=== PATIENT | male | born 2000 | race Caucasian/White ===

== ENCOUNTER 2018-07-12 23:45 | Emergency (ER) | payer SELFPAY ==
[~2018-07-12] VITALS: Ht 175.3 cm; Wt 65.8 kg
--- NOTE | 2018-07-13 00:10 | PHYS DOC ---
Past Medical History Past Medical History: No Pertinent History Past Surgical History: No Surgical History Alcohol Use: None Drug Use: None Adult General Chief Complaint Chief Complaint: ABDOMINAL PAIN HPI HPI Patient is a 18 year old man who presents with diarrhea and LLQ pain Patient has had abdominal pain over the last 3 days. Patient has a history of appendectomy a year ago. Since then, he's well until 3 days ago when he had onset of intermittent lower abdominal pain which became constant since last night. He's had progressive diarrhea over the last 2 days, 3 episodes per day watery brown. He denies any fevers, nausea or vomiting. Denies urgency, no hematuria. No prior history of kidney stones. He smoke marijuana frequently. Review of Systems Review of Systems Constitutional: Denies fever or chills Eyes: Denies change in visual acuity, redness, or eye pain HENT: Denies nasal congestion or sore throat Respiratory: Denies cough or shortness of breath Cardiovascular: Denies chest pain or palpitations GI: with LLQ abdominal pain, nausea, no vomiting, no bloody stools, with watery diarrhea : Denies dysuria or hematuria Musculoskeletal: Denies back pain or joint pain Integument: Denies rash or skin lesions Neurologic: Denies headache, focal weakness or sensory changes Endocrine: Denies polyuria or polydipsia All other systems were reviewed and found to be within normal limits, except as documented in this note. Current Medications Current Medications Current Medications Medications (Trade) Dose Ordered Sig/Marely Start Time Stop Time Status Last Admin Dose Admin Ondansetron HCl (Zofran) 4 mg 1X ONCE 07/13/18 00:30 07/13/18 00:31 DC 07/13/18 00:56 4 MG Potassium Chloride (KCl Oral Soln) 40 meq 1X ONCE 07/13/18 01:15 07/13/18 01:16 DC 07/13/18 01:29 40 MEQ Sodium Chloride 1,000 ml @ 1,000 mls/hr 1X ONCE 07/13/18 00:15 07/13/18 01:14 DC 07/13/18 00:55 1,000 MLS/HR Allergies Allergies Allergies Coded Allergies Type Severity Reaction Last Updated Verified No Known Drug Allergies 03/08/16 No Physical Exam Physical Exam Constitutional: Well developed, well nourished, no acute distress, non-toxic appearance. HENT: Normocephalic, atraumatic, bilateral external ears normal, oropharynx moist, no oral exudates, nose normal. Eyes: PERRLA, EOMI, conjunctiva normal, no discharge. Neck: Normal range of motion, no tenderness, supple, no stridor. Cardiovascular:Heart rate regular rhythm, no murmur Lungs & Thorax: Bilateral breath sounds clear to auscultation Abdomen: Bowel sounds normal, soft, with LLQ tenderness, no masses, no pulsatile masses. Skin: Warm, dry, no erythema, no rash. Back: No tenderness, no CVA tenderness. Extremities: No tenderness, no cyanosis, no clubbing, ROM intact, no edema. Neurologic: Alert and oriented X 3, normal motor function, normal sensory function, no focal deficits noted. Psychologic: Affect normal, judgement normal, mood normal. Current Patient Data Vital Signs Vital Signs Date Time Temp Pulse Resp B/P (MAP) Pulse Ox O2 Delivery O2 Flow Rate FiO2 07/13/18 01:30 57 12 130/70 (90) 100 Room Air 07/13/18 00:13 99.3 99.3 Lab Values Laboratory Tests Test 07/13/18 00:06 07/13/18 00:47 White Blood Count 6.6 x10^3/uL (4.0-11.0) Red Blood Count 5.42 x10^6/uL (4.30-5.70) Hemoglobin 17.0 g/dL (13.0-17.5) Hematocrit 48.4 % (39.0-53.0) Mean Corpuscular Volume 89 fL (79-100) Mean Corpuscular Hemoglobin 31 pg (25-35) Mean Corpuscular Hemoglobin Concent 35 g/dL (31-37) Red Cell Distribution Width 13.4 % (11.5-14.5) Platelet Count 343 x10^3/uL (140-400) Neutrophils (%) (Auto) 57 % (31-73) Lymphocytes (%) (Auto) 30 % (24-48) Monocytes (%) (Auto) 9 % (0-9) Eosinophils (%) (Auto) 4 % (0-3) H Basophils (%) (Auto) 1 % (0-3) Neutrophils # (Auto) 3.8 x10^3uL (1.8-7.7) Lymphocytes # (Auto) 2.0 x10^3/uL (1.0-4.8) Monocytes # (Auto) 0.6 x10^3/uL (0.0-1.1) Eosinophils # (Auto) 0.2 x10^3/uL (0.0-0.7) Basophils # (Auto) 0.0 x10^3/uL (0.0-0.2) Sodium Level 143 mmol/L (136-145) Potassium Level 3.3 mmol/L (3.5-5.1) L Chloride Level 103 mmol/L (98-107) Carbon Dioxide Level 29 mmol/L (21-32) Anion Gap 11 (6-14) Blood Urea Nitrogen 11 mg/dL (8-26) Creatinine 1.2 mg/dL (0.7-1.3) Estimated GFR (Cockcroft-Gault) 77.2 BUN/Creatinine Ratio 9 (6-20) Glucose Level 92 mg/dL (70-99) Calcium Level 9.7 mg/dL (8.5-10.1) Total Bilirubin 1.3 mg/dL (0.2-1.0) H Aspartate Amino Transferase (AST) 20 U/L (15-37) Alanine Aminotransferase (ALT) 41 U/L (16-63) Alkaline Phosphatase 90 U/L (46-116) Total Protein 8.6 g/dL (6.4-8.2) H Albumin 5.0 g/dL (3.4-5.0) Albumin/Globulin Ratio 1.4 (1.0-1.7) Lipase 149 U/L (73-393) Urine Collection Type Unknown Urine Color Yellow Urine Clarity Clear Urine pH 7.0 Urine Specific [place] 1.025 Urine Protein Negative mg/dL (NEG-TRACE) Urine Glucose (UA) Negative mg/dL (NEG) Urine Ketones (Stick) Negative mg/dL (NEG) Urine Blood Negative (NEG) Urine Nitrite Negative (NEG) Urine Bilirubin Negative (NEG) Urine Urobilinogen Dipstick 1.0 mg/dL (0.2 mg/dL) Urine Leukocyte Esterase Negative (NEG) Urine RBC 0 /HPF (0-2) Urine WBC 1-4 /HPF (0-4) Urine Squamous Epithelial Cells Occ /LPF Urine Bacteria 0 /HPF (0-FEW) Urine Mucus Marked /LPF Laboratory Tests 07/13/18 00:06 Laboratory Tests 07/13/18 00:06 EKG EKG [] Radiology/Procedures Radiology/Procedures [facility] [address] [place] [address] IMAGING REPORT Signed PATIENT: BRIAN SIERRA ACCOUNT: [id number] : 2000 LOCATION: ER AGE: 18 SEX: M EXAM STATUS: DEP ER ORD. PHYSICIAN: FABRIZIO MAYERS MD REASON: pain PROCEDURE: ACUTE ABDOMEN SERIES Examination: Acute abdomen series HISTORY: History of abdominal pain COMPARISON: None available FINDINGS: The cardiomediastinal silhouette grossly appears unremarkable. There is no acute infiltrate or visualized pneumothorax No evidence of free air noted under the hemidiaphragm. Bowel gas pattern appears unremarkable. IMPRESSION: 1. No acute cardiopulmonary findings. 2. Unremarkable bowel gas pattern. Electronically signed by: Gee White MD (07/13/2018 8:11 AM) [id number] DICTATED and SIGNED BY: GEE WHITE MD DATE: 07/13/18 0809 Course & Med Decision Making Course & Med Decision Making Pertinent Labs and Imaging studies reviewed. (See chart for details) Emergency department course Patient presents with LLQ pain and diarrhea DDx- enteritis, colitis, diverticulitis, dehydration 01:30 The patient was stable emergency department improved after IV hydration and potassium. His abdominal cramping resolved. Labs are remarkable for mild hypokalemia. Patient was given potassium replacement. Abdominal series x-rays were unremarkable. Patient will follow-up with PCP for further evaluation. Patient was given prescription for potassium and peptobismol. Patient advised to return to the ED if he develops worse pain, vomiting or fevers. Dragon Disclaimer Dragon Disclaimer This electronic medical record was generated, in whole or in part, using a voice recognition dictation system. Departure Departure Impression: Primary Impression: Diarrhea Additional Impressions: LLQ abdominal pain Hypokalemia Marijuana use Disposition: HOME, SELF-CARE Condition: STABLE Referrals: KIRILL OLEARY MD (PCP) Follow-up tomorrow for further evaluation Patient Instructions: Abdominal Pain, Diarrhea, [id number], Diet for Diarrhea , Adult, Hypokalemia, Marijuana Abuse and Chemical Dependency Additional Instructions: If he develop worse pain, vomiting, fevers, difficulty breathing, lightheadedness return to the emergency department immediately Scripts Potassium Chloride (POTASSIUM CHLORIDE) 20 Meq Tablet.er 20 MEQ PO DAILY for 5 Days, #5 TAB.SR Prov: FABRIZIO MAYERS MD 07/13/18 Bismuth Subsalicylate (PEPTO-BISMOL) 525 Mg/15 Ml Oral.susp 525 MG PO QID for 7 Days, #1 BOTTLE Prov: FABRIZIO MAYERS MD 07/13/18 Problem Qualifiers FABRIZIO MAYERS MD Jul 13, 2018 00:09
[2018-07-13] MEDS ORDERED: IV NORMAL SALINE 1000ML BAG 1,000 ML IV ONE (00:15)
[2018-07-13 00:16] LABS: BASO % 1 % (0-3); EOS # 0.2 x10^3/uL (0.0-0.7); EOS % 4 % (0-3); HEMATOCRIT 48.4 % (39.0-53.0); LYMPH % 30 % (24-48); MEAN CORPUSCULAR HEMOGLOBIN 31 pg (25-35); MEAN CORPUSCULAR HGB CONC 35 g/dL (31-37); MEAN CORPUSCULAR VOLUME 89 fL (79-100); MONO # 0.6 x10^3/uL (0.0-1.1); MONO % 9 % (0-9); NEUT # 3.8 x10^3uL (1.8-7.7); NEUT % 57 % (31-73); PLATELET COUNT 343 x10^3/uL (140-400); RED BLOOD COUNT 5.42 x10^6/uL (4.30-5.70); RED CELL DISTRIBUTION WIDTH 13.4 % (11.5-14.5); WHITE BLOOD COUNT 6.6 x10^3/uL (4.0-11.0)
[2018-07-13] MEDS ORDERED: ONDANSETRON PF 4 MG/2 ML VIAL. IV ONE (00:30)
[2018-07-13 00:34] LABS: CALCIUM 9.7 mg/dL (8.5-10.1); CREATININE 1.2 mg/dL (0.7-1.3); GFR 77.2; POTASSIUM 3.3 mmol/L (3.5-5.1)
[2018-07-13 00:40] LABS: ALBUMIN/GLOBULIN RATIO 1.4 (1.0-1.7); TOTAL BILIRUBIN 1.3 mg/dL (0.2-1.0); TOTAL PROTEIN 8.6 g/dL (6.4-8.2)
[2018-07-13 01:06] LABS: BILIRUBIN,URINE NEGATIVE (NEG); CLARITY,URINE CLEAR; COLOR,URINE YELLOW; NITRITE,URINE NEGATIVE (NEG); PROTEIN,URINE NEGATIVE (NEG-TRACE)
[2018-07-13] MEDS ORDERED: POTASSIUM CHLORIDE 20 MEQ/15 ML ORAL LIQUID. PO ONE (01:15)
[2018-07-13 01:18] LABS: BACTERIA,URINE 0 /HPF (0-FEW); RBC,URINE 0 /HPF (0-2); SQUAMOUS EPITHELIAL CELL,UR OCC /LPF
[2018-07-13 01:30] VITALS: BP 130/70
[2018-07-13] MEDS ORDERED: POTA20TA82 PO (01:36)
[2018-07-13] MEDS ORDERED: BISM525O8 PO (01:36)
--- NOTE | 2018-07-13 08:15 | RAD ---
Examination: Acute abdomen series HISTORY: History of abdominal pain COMPARISON: None available FINDINGS: The cardiomediastinal silhouette grossly appears unremarkable. There is no acute infiltrate or visualized pneumothorax No evidence of free air noted under the hemidiaphragm. Bowel gas pattern appears unremarkable. IMPRESSION: 1. No acute cardiopulmonary findings. 2. Unremarkable bowel gas pattern. Electronically signed by: Gee White MD (07/13/2018 8:11 AM) [id number]
== END 2018-07-13 02:00 | disposition home or self-care (01) ==
LOC: ER 23:45
DX: R19.7 Diarrhea, unspecified (principal); R10.32 Left lower quadrant pain; E87.6 Hypokalemia; F12.90 Cannabis use, unspecified, uncomplicated; Z90.89 Acquired absence of other organs
CPT/HCPCS: 36415; 74022; 80053; 81001; 83690; 85025; 96361; 96374; 99285; J2405; J7030

== ENCOUNTER 2018-09-28 22:25 | Emergency (ER) | payer SELFPAY ==
[~2018-09-28] VITALS: Ht 175.3 cm; Wt 76.2 kg
[~2018-09-28 22:25] MED LIST: BISM525O8 PO; POTA20TA82 PO
[2018-09-28 22:27] VITALS: BP 126/70
[2018-09-28] MEDS ORDERED: ACET-704 PO (23:02)
[2018-09-28] MEDS ORDERED: DICL50TA4 PO (23:02)
[2018-09-28] MEDS ORDERED: AMOX875T PO (23:02)
--- NOTE | 2018-09-28 23:03 | PHYS DOC ---
Past Medical History Past Medical History: Anxiety, Depression Past Surgical History: Appendectomy Alcohol Use: None Drug Use: None Adult General Chief Complaint Chief Complaint: DENTAL PROBLEM HPI HPI Patient is a 18 year old female with a history of anxiety, depression, who presents today complaining of 10 out of 10 right lower gum dental pain for 2 days. Patient denies any fever or trismus. She states his grandmother is in the process of getting a dental appointment next week. Patient states his been taking [id number] medications with no relief. Review of Systems Review of Systems Constitutional: Denies fever or chills [] Eyes: Denies change in visual acuity, redness, or eye pain [] HENT: Reports right lower gum dental pain. Denies nasal congestion or sore throat [] Musculoskeletal: Denies back pain or joint pain [] Integument: Denies rash or skin lesions [] Neurologic: Denies headache, focal weakness or sensory changes [] All other systems were reviewed and found to be within normal limits, except as documented in this note. Current Medications Current Medications Current Medications Medications (Trade) Dose Ordered Sig/Marely Start Time Stop Time Status Last Admin Dose Admin Acetaminophen/ Hydrocodone Bitart (Lortab 5/325) 1 tab 1X ONCE 09/28/18 23:30 09/28/18 23:31 Naproxen (Naprosyn) 500 mg 1X ONCE 09/28/18 23:30 09/28/18 23:31 Allergies Allergies Allergies Coded Allergies Type Severity Reaction Last Updated Verified No Known Drug Allergies 03/08/16 No Physical Exam Physical Exam Constitutional: Well developed, well nourished, no acute distress, non-toxic appearance. [] HENT: Normocephalic, atraumatic, bilateral external ears normal, oropharynx moist, no oral exudates, nose normal. [] Right lower gum with mild swelling along the wisdom teeth region though patient does not have a wisdom tooth on that side. Tooth #31 appears and underneath the gum. There is no fluctuance to this area. There is scattered dental caries throughout his teeth. Abdomen: Bowel sounds normal, soft, no tenderness, no masses, no pulsatile masses. [] Skin: Warm, dry, no erythema, no rash. [] Back: No tenderness, no CVA tenderness. [] Extremities: No tenderness, no cyanosis, no clubbing, ROM intact, no edema. [] Neurologic: Alert and oriented X 3, normal motor function, normal sensory function, no focal deficits noted. [] Psychologic: Affect normal, judgement normal, mood normal. [] EKG EKG [] Radiology/Procedures Radiology/Procedures [] Course & Med Decision Making Course & Med Decision Making Pertinent Labs and Imaging studies reviewed. (See chart for details) Patient has a dental abscess. We discharged with amoxicillin for 10 days. Given prescription for diclofenac and Tylenol 3 as needed for pain. Follow-up with dentist next week. Dragon Disclaimer Dragon Disclaimer This electronic medical record was generated, in whole or in part, using a voice recognition dictation system. Departure Departure Impression: Primary Impression: Dental abscess Additional Impression: Dental caries Disposition: HOME, SELF-CARE Condition: STABLE Referrals: KIRILL OLEARY MD (PCP) Follow up with the dentist in the course of next week Patient Instructions: Dental Abscess, Dental Caries-Brief Additional Instructions: You were evaluated to the emergency room for dental pain and infection. Take the prescribed antibiotics until completed. Follow-up with your dentist next week. Scripts Acetaminophen With Codeine (TYLENOL WITH CODEINE #3 TABLET) 1 Each Tablet 1 TAB PO PRN Q6HRS PRN for PAIN, #20 TAB Prov: YOANA WATERS APRN 09/28/18 Amoxicillin (AMOXICILLIN) 875 Mg Tablet 1 TAB PO BID, #20 TAB Prov: YOANA WATERS APRN 09/28/18 Diclofenac Sodium (DICLOFENAC SODIUM) 50 Mg Tablet.dr 1 TAB PO BID, #30 TAB 0 Refills Prov: YOANA WATERS APRN 09/28/18 Problem Qualifiers YOANA WATERS APRN Sep 28, 2018 23:03
[2018-09-28] MEDS ORDERED: HYDROcodone/APAP 5/325MG 1 TAB TABLET PO ONE (23:30)
[2018-09-28] MEDS ORDERED: NAPROXEN 500 MG TABLET PO ONE (23:30)
== END 2018-09-28 23:04 | disposition home or self-care (01) ==
LOC: ER 22:25
DX: K04.7 Periapical abscess without sinus (principal); K02.9 Dental caries, unspecified; F41.9 Anxiety disorder, unspecified; F32.9 Major depressive disorder, single episode, unspecified; Z90.89 Acquired absence of other organs
CPT/HCPCS: 99283

== ENCOUNTER 2018-12-01 14:09 | Emergency (ER) | payer SELFPAY ==
[~2018-12-01] VITALS: Ht 172.7 cm; Wt 68.0 kg
[~2018-12-01 14:09] MED LIST changes: +ACET-704 PO; +AMOX875T PO; +DICL50TA4 PO
[2018-12-01 15:40] VITALS: BP 139/70
--- NOTE | 2018-12-01 16:37 | PHYS DOC ---
Past Medical History Past Medical History: Anxiety, Depression Past Surgical History: Appendectomy Alcohol Use: None Drug Use: Marijuana Adult General Chief Complaint Chief Complaint: ABSCESS HPI HPI Patient is a 18 year old male who presents to the emergency Department today with complaints of a red, tender, swollen area near his left axilla for the last 3 days. Patient states that it started as a small pimple and has progressed to this larger more painful areas today. He denies any fever, drainage, or injury. Currently reports his pain as a 10 out of 10 on pain scale there are no alleviating factors. The pain increases with palpation or movement. Review of Systems Review of Systems Constitutional: Denies fever or chills [] Musculoskeletal: Denies back pain or joint pain [] Integument: Denies rash, See HPI Neurologic: Denies focal weakness or sensory changes [] Current Medications Current Medications Current Medications Medications (Trade) Dose Ordered Sig/Marely Start Time Stop Time Status Last Admin Dose Admin Acetaminophen/ Hydrocodone Bitart (Lortab 5/325) 1 tab 1X ONCE 12/01/18 16:45 12/01/18 16:46 DC 12/01/18 16:54 1 TAB Lidocaine HCl (Xylocaine-Mpf 1% 2ml Vial) 6 ml 1X ONCE 12/01/18 16:45 12/01/18 16:46 DC 12/01/18 16:54 6 ML Allergies Allergies Allergies Coded Allergies Type Severity Reaction Last Updated Verified citalopram Allergy Mild "HOT FLASHES" 09/28/18 Yes Physical Exam Physical Exam Constitutional: Well developed, well nourished, no acute distress, non-toxic appearance. [] HENT: Normocephalic, atraumatic, bilateral external ears normal, nose normal. [] Eyes: conjunctiva normal, no discharge. [] Neck: Normal range of motion, no stridor. [] Skin: Warm, dry; 4 cm diameter area of erythema, warmth, and tenderness noted to left axilla with a 2 cm fluctuant central area ,no drainage, consistent with an abscess Extremities: No cyanosis, no clubbing, ROM intact, no edema. [] Neurologic: Alert and oriented X 3, normal motor function, normal sensory function, no focal deficits noted. [] Psychologic: Affect normal, judgement normal, mood normal. [] Current Patient Data Vital Signs Vital Signs Date Time Temp Pulse Resp B/P (MAP) Pulse Ox O2 Delivery O2 Flow Rate FiO2 12/01/18 15:40 98.6 62 16 139/70 (93) 99 Room Air 98.6 EKG EKG [] Radiology/Procedures Radiology/Procedures Indication: abscess left axilla Procedure: The patient was positioned appropriately. Local anesthesia was 6 ml of 1% lidocaine. An incision was then made over the apex of the lesion and a moderate amount of yellow pus to bloody drainage material was expressed. The drainage cavity was packed with sterile gauze. The patient tolerated the procedure well. Complications: none.[] Course & Med Decision Making Course & Med Decision Making Pertinent Labs and Imaging studies reviewed. (See chart for details) dx: Left axilla abscess cutaneous I&D as described in procedures. Patient was given one Lortab in the emergency department. Prescription written for clindamycin. Tylenol or ibuprofen as needed for comfort. Apply warm moist packs to the area 4 times a day and as needed for comfort. Return to the emergency room in 48 hours have wound recheck and packing removed. Patient verbalized an understanding of home care, medications, follow-up, and return to ED instructions and was in agreement with the plan of care. [] Dragon Disclaimer Dragon Disclaimer This electronic medical record was generated, in whole or in part, using a voice recognition dictation system. Departure Departure Impression: Primary Impression: Cutaneous abscess of left axilla Additional Impression: Encounter for incision and drainage procedure Disposition: HOME, SELF-CARE Condition: STABLE Referrals: KIRILL OLEARY MD (PCP) Patient Instructions: Abscess, Care After Additional Instructions: Fill the prescription and use it as directed. Keep the area clean and dry. Apply warm, moist, packs 4 times a day and as needed for comfort. He may take Tylenol or ibuprofen as needed for pain. Return to the emergency room in 48 hours to have the packing removed and the wound rechecked. Scripts Clindamycin Hcl (CLINDAMYCIN HCL) 150 Mg Capsule 3 CAP PO TID for 7 Days, #63 CAP 0 Refills Prov: MARTHA RICHARDS APRN 12/01/18 Problem Qualifiers MARTHA RICHARDS APRN Dec 01, 2018 16:37
[2018-12-01] MEDS ORDERED: LIDOCAINE 1% PF 2 ML VIAL. INJ ONE (16:45)
[2018-12-01] MEDS ORDERED: HYDROcodone/APAP 5/325MG 1 TAB TABLET PO ONE (16:45)
[2018-12-01] MEDS ORDERED: CLIN150C14 PO (17:26)
[2018-12-01] MEDS ORDERED: DIPHTH,PERTUSS(ACELL),TET TOX 0.5 ML DISP.SYRIN. VAX IM ONE (17:30)
== END 2018-12-01 17:50 | disposition home or self-care (01) ==
LOC: ER 14:09
DX: L02.412 Cutaneous abscess of left axilla (principal); F41.9 Anxiety disorder, unspecified; F32.9 Major depressive disorder, single episode, unspecified; Z90.89 Acquired absence of other organs; Z88.8 Allergy status to other drugs, medicaments and biological substances
CPT/HCPCS: 10060; 90471; 90715; 99283

== ENCOUNTER 2019-07-20 17:52 | Emergency (ER) | payer SELFPAY ==
[~2019-07-20] VITALS: Ht 177.8 cm; Wt 68.0 kg
[~2019-07-20 17:52] MED LIST changes: +CLIN150C14 PO
[2019-07-20] MEDS ORDERED: AZITHROMYCIN 250 MG TABLET. PO STA (18:39)
[2019-07-20 18:41] VITALS: BP 133/63
[2019-07-20] MEDS ORDERED: cefTRIAXone IM 250 MG VIAL IM ONE (18:45)
[2019-07-20] MEDS ORDERED: ACYC400T PO (18:52)
--- NOTE | 2019-07-20 18:52 | PHYS DOC ---
Past Medical History Past Medical History: Anxiety, Depression (LAUREN ESTES APRN) Past Surgical History: Appendectomy (LAUREN ESTES APRN) Alcohol Use: None Drug Use: Marijuana (LAUREN ESTES APRN) Adult General Chief Complaint Chief Complaint: GROIN PAIN [facility] HPI Patient is a 19 year old male who presents with L groin pain that has been ongoing for 2 days. The patient also states he has had a rash on his testicles during this time. Rates his pain as 3/10 in severity. States that he is sexually active and has had 2 recent partners. Denies discharge or dysuria. (LAUREN ESTES APRN) Review of Systems Review of Systems Constitutional: Denies fever or chills [] Eyes: Denies change in visual acuity, redness, or eye pain [] HENT: Denies nasal congestion or sore throat [] Respiratory: Denies cough or shortness of breath [] Cardiovascular: No additional information not addressed in HPI [] GI: Denies abdominal pain, nausea, vomiting, bloody stools or diarrhea [] : Denies dysuria or hematuria. Reports L groin pain. Musculoskeletal: Denies back pain or joint pain [] Integument: Reports rash on testicles. Neurologic: Denies headache, focal weakness or sensory changes [] Endocrine: Denies polyuria or polydipsia [] Complete systems were reviewed and found to be within normal limits, except as documented in this note. (LAUREN ESTES APRN) Current Medications Current Medications Current Medications Medications (Trade) Dose Ordered Sig/Marely Start Time Stop Time Status Last Admin Dose Admin Azithromycin (Zithromax) 1,000 mg 1X STAT 07/20/19 18:39 07/20/19 18:45 DC 07/20/19 18:59 1,000 MG Ceftriaxone Sodium (Rocephin Im) 250 mg 1X ONCE 07/20/19 18:45 07/20/19 18:46 DC 07/20/19 18:59 250 MG (LAUREN CAVAZOS DO) Allergies Allergies Allergies Coded Allergies Type Severity Reaction Last Updated Verified imipramine Allergy Intermediate 07/20/19 Yes citalopram Allergy Mild "HOT FLASHES" 09/28/18 Yes (LAUREN CAVAZOS DO) Physical Exam Physical Exam Constitutional: Well developed, well nourished, no acute distress, non-toxic appearance. [] HENT: Normocephalic, atraumatic, bilateral external ears normal, oropharynx moist, no oral exudates, nose normal. [] Eyes: PERRLA, EOMI, conjunctiva normal, no discharge. [] Neck: Normal range of motion, no tenderness, supple, no stridor. [] Cardiovascular:Heart rate regular rhythm, no murmur [] Lungs & Thorax: Bilateral breath sounds clear to auscultation [] Abdomen: Bowel sounds normal, soft, no tenderness, no masses, no pulsatile masses. [] Skin: Warm, dry, no erythema, no rash. [] Back: No tenderness, no CVA tenderness. [] Extremities: No tenderness, no cyanosis, no clubbing, ROM intact, no edema. [] Neurologic: Alert and oriented X 3, normal motor function, normal sensory fu nction, no focal deficits noted. [] Psychologic: Affect normal, judgement normal, mood normal. [] : cauliflower lesions on testicles, lymphopathy in left groin with mild tenderness. (LAUREN ESTES APRN) Current Patient Data Vital Signs Vital Signs Date Time Temp Pulse Resp B/P (MAP) Pulse Ox O2 Delivery O2 Flow Rate FiO2 07/20/19 18:41 81 17 133/63 (86) 99 Room Air 07/20/19 18:17 99.0 99.0 (LAUREN CAVAZOS DO) EKG EKG [] (LAUREN ESTES APRN) Radiology/Procedures Radiology/Procedures [] (LAUREN ESTES APRN) Course & Med Decision Making Course & Med Decision Making Pertinent Labs and Imaging studies reviewed. (See chart for details) Has lymph node swelling in left groin with what appears to be genital herpes. Will send of viral swab of lesion. Will send off Gonorrhea and Chlamydia testing (also will treat) and will start on Acyclovir 400 mg orally 3x/day for 7-10 days. (LAUREN ESTES APRN) Dragon Disclaimer Dragon Disclaimer This electronic medical record was generated, in whole or in part, using a voice recognition dictation system. (LAUREN ESTES APRN) Departure Departure Impression: Primary Impression: Concern about STD in male without diagnosis Additional Impression: Genital herpes Disposition: 01 HOME, SELF-CARE Condition: STABLE Referrals: KIRILL OLEARY MD (PCP) Patient Instructions: Genital Herpes, Genital Warts, Sexually Transmitted Disease Additional Instructions: Please do not have sexually contact for 2 weeks and not during outbreak of rash. Please notify partners if anything is positive. We will call if positive results. We are already treating you. Please follow up with primary care for further care. Please fill your prescription at pharmacy and return if any additional issues. Scripts Acyclovir (ACYCLOVIR) 400 Mg Tablet 1 TAB PO TID for 10 Days, #30 TAB Prov: LAUREN ESTES APRN 07/20/19 Attending Signature Attending Signature I have reviewed the PA/CONTACT CENTER MANAGER's note and plan of care. I was available for consultation as needed during the patient's visit in the emergency department. I agree with the clinical impression, plan, and disposition. (LAUREN CAVAZOS DO) Problem Qualifiers Additional Impression: Genital herpes Herpes simplex infection site: other site of male genital organs Qualified Codes: A60.02 - Herpesviral infection of other male genital organs LAUREN ESTES APRN Jul 20, 2019 18:52 LAUREN CAVAZOS DO Jul 21, 2019 04:21
[2019-07-24 00:08] LABS: HERPES SIMPLEX TYPE 1 Negative (Negative); HERPES SIMPLEX TYPE 2 Negative (Negative)
== END 2019-07-20 19:04 | disposition home or self-care (01) ==
LOC: ER 17:52
DX: A60.02 Herpesviral infection of other male genital organs (principal); Z20.2 Contact with and (suspected) exposure to infections with a predominantly sexual mode of transmission; Z90.89 Acquired absence of other organs; Z88.8 Allergy status to other drugs, medicaments and biological substances
CPT/HCPCS: 87491; 87529; 87591; 96372; 99284; J0696; Q0144